=== PATIENT | female | born 1985 | race Caucasian/White ===

== ENCOUNTER 2016-08-25 04:30 | Emergency (ER) | payer SELFPAY ==
[2016-08-25 04:45] VITALS: RESP 16; TEMP 97.9
--- NOTE | 2016-08-25 04:49 | ED ---
Chest Pain HPI - General Stated Complaint: shoulder pain,sundar Time Seen by Provider: 08/25/16 04:32 Source: RN notes reviewed Limitations: no limitations - History of Present Illness Initial Comments: This patient is a 31-year-old woman who presents to be evaluated for pleuritic right sided chest pain. The patient states that the pain came on tonight, while she was lying down. She describes the pain as being sharp, it is severe when she takes a very deep breath, otherwise she is not having much pain. The patient has not noted any other worsening or relieving factors. She has not had any associated symptoms. Patient denies family/personal history of DVT/PE. She does not use any hormones or take a control. Patient does smoke she states less than half pack cigarettes per day. No history of malignancy. MD Complaint: chest pain -: hour(s) Onset: during rest Pain Location: right chest Pain Radiation: none Severity: moderate Quality: sharp Consistency: constant Improves With: nothing Worsens With: inspiration Treatments Prior to Arrival: none - Related Data Previous Rx's Medication Instructions Recorded Acetaminophen-Codeine 300-30mg 1 tab PO Q4H PRN #20 tablet 08/25/16 [Tylenol w/codeine #3] Ibuprofen [Motrin] 800 mg PO Q8HR PRN #20 tab 08/25/16 Allergies Allergy/AdvReac Type Severity Reaction Status Date / Time No Known Allergies Allergy Verified 08/25/16 05:09 Review of Systems ROS Statement: Those systems with pertinent positive or pertinent negative responses have been documented in the HPI. ROS Other: All systems not noted in ROS Statement are negative. Constitutional: Denies: fever, chills Respiratory: Denies: cough, dyspnea, wheezes, hemoptysis Cardiovascular: Reports: as per HPI, chest pain. Denies: palpitations, edema, syncope Gastrointestinal: Denies: abdominal pain, nausea, vomiting Genitourinary: Denies: dysuria Musculoskeletal: Denies: back pain Skin: Denies: rash Neurological: Denies: headache EKG Findings - EKG Results: EKG: WNL, sinus rhythm, normal axis, normal QRS, normal ST/T, no acute changes EKG shows: bradycardia (Rate 57 bpm) General Exam General appearance: alert, in no apparent distress Head exam: Present: atraumatic, normocephalic Eye exam: Present: normal appearance. Absent: scleral icterus, conjunctival injection ENT exam: Present: normal oropharynx Neck exam: Present: normal inspection, full ROM. Absent: tenderness, meningismus Respiratory exam: Present: normal lung sounds bilaterally. Absent: respiratory distress, wheezes, rales, rhonchi, stridor, chest wall tenderness, accessory muscle use, decreased breath sounds Cardiovascular Exam: Present: regular rate, normal rhythm, normal heart sounds. Absent: systolic murmur, diastolic murmur, rubs, gallop GI/Abdominal exam: Present: soft. Absent: tenderness, guarding, rebound Extremities exam: Present: normal inspection, normal capillary refill. Absent: pedal edema, calf tenderness Back exam: Present: normal inspection. Absent: CVA tenderness (R), CVA tenderness (L) Neurological exam: Present: alert Skin exam: Present: warm, dry, intact, normal color. Absent: rash Course Vital Signs 08/25/16 04:41 Temperature 97.9 F Pulse Rate 69 Respiratory 16 Rate Blood Pressure 146/69 O2 Sat by Pulse 98 Oximetry Disposition Clinical Impression: Pleuritis Disposition: HOME SELF-CARE Condition: Good Instructions: Pleurisy (ED) Prescriptions: Acetaminophen-Codeine 300-30mg [Tylenol w/codeine #3] 1 tab PO Q4H PRN #20 tablet PRN Reason: Pain Ibuprofen [Motrin] 800 mg PO Q8HR PRN #20 tab PRN Reason: Pain Referrals: Reilly Quinonez MD [REFERRING] - 1-2 days
[2016-08-25 04:57] LABS: Basophils % (A) 0 %; CH 31.3; CHCM 33.8; Eosinophils # (A) 0.5 k/uL (0-0.7); Eosinophils % (A) 5 %; HCT 40.5 % (34.0-46.0); HDW 2.35; HGB 13.5 gm/dL (11.4-16.0); Luc # (Auto) 0.13; Luc % (Auto) 1; Lymphocytes # (A) 2.7 k/uL (1.0-4.8); Lymphocytes % (A) 26 %; MCH 31.1 pg (25.0-35.0); MCHC 33.4 g/dL (31.0-37.0); MCV 93.1 fL (80.0-100.0); Mean Platelet Volume 8.9; Monocytes # (A) 0.5 k/uL (0-1.0); Monocytes % (A) 5 %; Neutrophils # (A) 6.4 k/uL (1.3-7.7); Neutrophils % (A) 62 %; RBC 4.36 m/uL (3.80-5.40); RDW 12.5 % (11.5-15.5); WBC 10.3 k/uL (3.8-10.6); WBC (Perox) 10.21
[2016-08-25 05:12] LABS: ALT 27 U/L (9-52); AST 15 U/L (14-36); Alkaline Phosphatase 62 U/L (38-126); Anion Gap 10 mmol/L; Blood Urea Nitrogen 12 mg/dL (7-17); Calcium 8.9 mg/dL (8.4-10.2); Carbon Dioxide 20 mmol/L (22-30); Chloride 111 mmol/L (98-107); Glucose 89 mg/dL (74-99); Non-African American GFR(MDRD) >60 (>60 ml/min/1.73 sqM); Potassium 4.1 mmol/L (3.5-5.1); Sodium 141 mmol/L (137-145); Total Bilirubin 0.6 mg/dL (0.2-1.3); Total Protein 6.3 g/dL (6.3-8.2)
[2016-08-25] MEDS: ASPIRIN 81 MG CHEW PO STA (05:15)
--- NOTE | 2016-08-25 05:20 | XR ---
EXAMINATION TYPE: XR chest 2V DATE OF EXAM: 08/25/2016 4:56 AM COMPARISON: Chest pain HISTORY: 08/20/2012 TECHNIQUE: Frontal and lateral views of the chest are obtained. FINDINGS: There is no focal air space opacity, pleural effusion, or pneumothorax seen. The cardiac silhouette size is within normal limits. The osseous structures are intact. IMPRESSION: No acute cardiopulmonary process. No significant interval change.
[2016-08-25] MEDS ORDERED: IBUPROFEN 400 MG TAB PO STA (05:29)
[2016-08-25 06:08] VITALS: BP 121/69; PULSE 74
== END 2016-08-25 06:08 | disposition home or self-care (01) ==
LOC: EC 04:30
DX: R09.1 Pleurisy (principal)
CPT/HCPCS: 36415; 71020; 80053; 84484; 85025; 85379; 93005; 99285

== ENCOUNTER 2021-01-09 10:43 | Emergency (ER) | payer BC ==
[2021-01-09] MEDS ORDERED: DIPH,PERTUS(ACELL)TETVAC-LF 0.5 ML VIAL IM ONE (11:00)
[2021-01-09] MEDS ORDERED: LIDOCAINE 1% INJ 10MG/ML (20 ML MDV) SQ ONE (11:00)
[2021-01-09 11:02] VITALS: BP 129/94; PULSE 73; RESP 18; TEMP 98.2
--- NOTE | 2021-01-09 11:04 | ED ---
Wound/Laceration HPI - General Stated Complaint: laceration Time Seen by Provider: 01/09/21 10:47 Source: RN notes reviewed, old records reviewed - History of Present Illness Initial Comments: Patient is a 35-year-old female who presents to the ER today for evaluation for her laceration over her left wrist. Patient reports that she was shutting a window and this caused the laceration to her left wrist is appropriate. Patient denies any other injury. Patient reports she has full flexion and extension of her wrist. Patient reports that her tetanus shot is up-to-date. - Related Data Previous Rx's Medication Instructions Recorded Acetaminophen-Codeine 300-30mg 1 tab PO Q4H PRN #20 tablet 08/25/16 [Tylenol w/codeine #3] Ibuprofen [Motrin] 800 mg PO Q8HR PRN #20 tab 08/25/16 Docusate [Colace] 100 mg PO DAILY #20 capsule 04/16/18 Polyethylene Glycol 3350 [Miralax] 17 gm PO DAILY #255 gm 04/16/18 Allergies Allergy/AdvReac Type Severity Reaction Status Date / Time No Known Allergies Allergy Verified 01/09/21 10:57 Review of Systems ROS Statement: Those systems with pertinent positive or pertinent negative responses have been documented in the HPI. ROS Other: All systems not noted in ROS Statement are negative. Past Medical History Past Medical History: No Reported History History of Any Multi-Drug Resistant Organisms: None Reported Past Surgical History: Tubal Ligation Past Psychological History: Anxiety Past Alcohol Use History: Occasional Past Drug Use History: None Reported General Exam - General Exam Comments Initial Comments: 35-year-old female. Patient is anxious. General appearance: alert, in no apparent distress Head exam: Present: atraumatic, normocephalic, normal inspection Eye exam: Present: normal appearance, PERRL, EOMI. Absent: scleral icterus, conjunctival injection, periorbital swelling ENT exam: Present: normal exam, mucous membranes moist Neck exam: Present: normal inspection. Absent: tenderness, meningismus, lymphadenopathy Respiratory exam: Present: normal lung sounds bilaterally. Absent: respiratory distress, wheezes, rales, rhonchi, stridor Cardiovascular Exam: Present: regular rate, normal rhythm, normal heart sounds. Absent: systolic murmur, diastolic murmur, rubs, gallop, clicks GI/Abdominal exam: Present: soft, normal bowel sounds. Absent: distended, tenderness, guarding, rebound, rigid Extremities exam: Present: normal inspection, normal capillary refill. Absent: full ROM, tenderness, pedal edema, joint swelling, calf tenderness Left Elbow exam: Present: normal inspection, full ROM Forearm Wrist exam: Present: normal inspection, full ROM Hand Wrist exam: Present: full ROM, laceration. Absent: normal inspection ( is a 3 cm superficial laceration. No evidence of tendon laceration or deep vessel laceration. ), tenderness Neuro motor exam: Present: wrist extension intact, thumb opposition intact, thumb IP flexion intact, thumb adduction intact, fingers 2-5 abduction intact Vascular: Present: normal capillary refill Back exam: Present: normal inspection Neurological exam: Present: alert, oriented X3, CN II-XII intact Course Vital Signs 01/09/21 10:58 Temperature 98.2 F Pulse Rate 73 Respiratory 18 Rate Blood Pressure 129/94 O2 Sat by Pulse 98 Oximetry Procedures - Laceration Laceration #1 Size (cm): 3 Description: linear Depth: simple, single layer Anesthetic Used: lidocaine 1% Anesthesia Technique: local infiltration Amount (mls): 5 Pre-repair: wound explored, irrigated extensively Type of Sutures: nylon Size of Sutures: 4-0 Number of Sutures: 7 Technique: simple, interrupted Patient Tolerated Procedure: well, no complications Medical Decision Making - Medical Decision Making 35-year-old female presents to the ER today for evaluation for about a lacer ation of her left wrist. She reports she's shutting a window and cut the anterior aspect of her wrist on broken window. Patient's wound was thoroughly irrigated. Tetanus shot is up-to-date. Patient had 7 sutures placed. Patient tolerated procedure well. Advised to monitor for instructions. - Radiology Data Radiology results: report reviewed No definite acute fracture dislocation of symptoms persist follow-up in 7-10 days suggested. Disposition Clinical Impression: Laceration of left wrist Disposition: HOME SELF-CARE Condition: Good Instructions (If sedation given, give patient instructions): Laceration (ED), Care For Your Stitches (ED) Additional Instructions: Please return to the emergency room in 8-10 days to have sutures removed. Please leave wound covered for the first 24-48 hours and then leave open to air after that time. Please use clean soap and water to clean the suture area to prevent scabbing over the top of your sutures. Please watch for any signs of infection which may include but not limited to increased pain, swelling, redness, fever or chills. Please return to the emergency room if any signs of infection do occur. Please return to the emergency room for any other concerns or complications. Is patient prescribed a controlled substance at d/c from ED?: No Referrals: Fatou Klein MD [Primary Care Provider] - 1-2 days Time of Disposition: 12:03
--- NOTE | 2021-01-09 11:26 | XR ---
EXAMINATION TYPE: XR wrist complete LT DATE OF EXAM: 01/09/2021 COMPARISON: NONE HISTORY: Laceration TECHNIQUE: Four views submitted. FINDINGS: The osseous structures are intact. The joint spaces are preserved and there is no acute fracture or dislocation. No metallic foreign body. IMPRESSION: 1. No definite acute fracture or dislocation if symptoms persist, follow-up study in 7 to 10 days wo uld be suggested
[2021-01-09] MEDS ORDERED: BACITRACIN OINT 1 EACH PACKET TOPICAL STA (11:48)
== END 2021-01-09 12:17 | disposition home or self-care (01) ==
LOC: EC 10:43
DX: S61.512A Laceration without foreign body of left wrist, initial encounter (principal); Z98.51 Tubal ligation status; W22.8XXA Striking against or struck by other objects, initial encounter; Y93.89 Activity, other specified
CPT/HCPCS: 73110; 96372; 12002; 99282; J2001